=== PATIENT | female | born 1980 | race Caucasian/White ===

== ENCOUNTER → 2017-04-25 | Outpatient (CLI) | payer BC ==
[2017-04-25 08:47] LABS: Basophils # (A) 0.1 k/uL (0-0.2); Basophils % (A) 1 %; CH 31.1; CHCM 34.1; Eosinophils # (A) 0.3 k/uL (0-0.7); Eosinophils % (A) 3 %; HDW 2.54; HGB 14.8 gm/dL (11.4-16.0); Luc # (Auto) 0.13; Luc % (Auto) 2; Lymphocytes # (A) 3.1 k/uL (1.0-4.8); Lymphocytes % (A) 39 %; MCH 29.6 pg (25.0-35.0); MCHC 32.3 g/dL (31.0-37.0); MCV 91.7 fL (80.0-100.0); Mean Platelet Volume 8.2; Monocytes # (A) 0.4 k/uL (0-1.0); Monocytes % (A) 6 %; Neutrophils # (A) 3.9 k/uL (1.3-7.7); Neutrophils % (A) 50 %; RBC 5.02 m/uL (3.80-5.40); RDW 13.3 % (11.5-15.5); WBC 7.9 k/uL (3.8-10.6); WBC (Perox) 7.64
== END | disposition home or self-care (01) ==
LOC: LABPAT 08:06
PROVIDERS: ATTEND Obstetrics & Gynecology
DX: Z01.812 Encounter for preprocedural laboratory examination (principal); N85.01 Benign endometrial hyperplasia
CPT/HCPCS: 85025

== ENCOUNTER 2017-05-01 08:29 | Day surgery (SDC) | payer BC ==
[2017-04-24 14:12] VITALS: BMI 53.8
[~2017-05-01 08:29] MED LIST: DEXAMETHASONE SOD PHOSPHATE 10 MG/ML 1 ML VIAL IV ONE; HYDROmorphone 1 MG/ML 1 ML SYRINGE IVP PRN; LACTATED RINGERS 1,000 ML IV SCH; LIDOCAINE 1% 20 ML VIAL (10MG/ML) FOR IV START INTRADERMA PRN; ONDANSETRON 4 MG/2 ML VIAL IVP ONE; Pre Op ABX Message 1 EACH MISC MISCELLANE ONE; SCOPOLAMINE 1.5MG/72HR PATCH TRANSDERM ONE
[2017-05-01 08:54] LABS: Glucose,Whole Blood 217 mg/dL (75-99)
[2017-05-01] MEDS ORDERED: KETOROLAC 30 MG/ML 1 ML VIAL ONE (11:25)
[2017-05-01] MEDS ORDERED: SUCCINYLCHOLINE CHLORIDE VIAL 200 MG/10 ML VIAL IV ONE (11:25)
[2017-05-01] MEDS ORDERED: GLYCOPYRROLATE 0.2 MG/ML 2 ML VIAL ONE (11:25)
[2017-05-01] MEDS ORDERED: PROPOFOL 10 MG/ML 20 ML VIAL IV ONE (11:25)
[2017-05-01] MEDS ORDERED: MIDAZOLAM 2 MG/2 ML VIAL ONE (11:25)
[2017-05-01] MEDS ORDERED: fentaNYL (PF) 50 MCG/ML 2 ML AMP ONE (11:25)
[2017-05-01] MEDS ORDERED: LIDOCAINE 1% INJ 10MG/ML (20 ML MDV) ONE (11:25)
[2017-05-01] MEDS ORDERED: LIDOCAINE 2%-EPI 1:100,000 20 ML VIAL SQ ONE ×2 (11:52)
--- NOTE | 2017-05-01 12:02 | P.OP ---
Date of Procedure: 05/01/17 Preoperative Diagnosis: Endometrial hyperplasia Dysfunctional uterine bleeding BMI of 53.9 Postoperative Diagnosis: Same plus endometrial polyp Procedure(s) Performed: Diagnostic hysteroscopy and dilation and curettage Implants: Anesthesia: KYREEA Surgeon: Kely Jovel Estimated Blood Loss (ml): 5 IV fluids (ml): 900 Urine output (ml): 350 Pathology: other (Endometrial curettings) Disposition: PACU Indications for Procedure: Operative Findings: Enlarged uterus sounding 11 cm with fluffy endometrium and intracavitary lesion consistent with a posterior fundal polyp. Description of Procedure: After the patient was met in the preoperative holding area and all questions were answered, she was taken to the operating room where anesthetic was administered without incident. She was in positioned, prepped and draped in the dorsal lithotomy position. Bladder was drained for approximately 350 mL of clear urine. Weighted speculum was placed in the vagina and the cervix was grasped anteriorly with a single-tooth tenaculum. Paracervical block with lidocaine plus epinephrine was placed. Uterus was sounded to 11.5 cm. The cervix was then sequentially dilated to allow for passage of the diagnostic hysteroscope. Hysteroscope was introduced and there was some clot and debris and the uterus. Once this cleared the endometrium appeared fluffy and there was a polypoid appearing mass emanating from the posterior wall of the fundus. The hysteroscope was removed and the cervix was further dilated to allow for passage of the sharp banjo curet. The uterine cavity was circumferentially curettaged with a large amount of tissue obtained including tissue consistent with the appearance of the polyp. Once no further tissue was obtained the procedure was halted. The cervix was observed and no active bleeding was noted. Instruments removed from the vagina. The patient was awoken from anesthetic without incident and transported recovery area in good condition. All counts reported to me as correct by the operating room staff.
[2017-05-01 12:17] VITALS: TEMP 97.2
[2017-05-01 12:59] VITALS: RESP 18
[2017-05-01 13:34] VITALS: BP 137/80; PULSE 78
== END 2017-05-01 13:53 | disposition home or self-care (01) ==
LOC: OR 08:29
PROVIDERS: ATTEND Obstetrics & Gynecology
DX: N85.02 Endometrial intraepithelial neoplasia [EIN] (principal); N93.8 Other specified abnormal uterine and vaginal bleeding; N84.0 Polyp of corpus uteri; E11.9 Type 2 diabetes mellitus without complications; Z79.84 Long term (current) use of oral hypoglycemic drugs; E66.01 Morbid (severe) obesity due to excess calories; Z68.43 Body mass index [BMI] 50.0-59.9, adult
CPT/HCPCS: 81025; 88305; 58558; J2250; J0330; J1100; J2405; J2001; J3010; J1885; J2704

== ENCOUNTER → 2020-04-24 | Day surgery (SDC) | payer BC ==
[2020-04-24 07:20] VITALS: RESP 16; TEMP 98.3
[2020-04-24 09:42] VITALS: BP 138/88; PULSE 60
--- NOTE | 2020-04-24 16:42 | MM ---
EXAMINATION TYPE: MG stereo VAD BX LT DATE OF EXAM: 04/24/2020 COMPARISON: 04/07/2020 CLINICAL HISTORY: 40-year-old female referred for stereotactic core needle biopsy of left breast microcalcifications. TECHNIQUE: Stereotactic guided core biopsy of the left breast. FINDINGS: The procedure of stereotactic guided core biopsy was explained to the patient. Benefits, alternatives, and risks were discussed. An informed consent was then obtained. The shortness pathway for biopsy was chosen. Shortness pathway was a lateral approach given the location of the microcalcifications at the 9:00 position. I performed the localization localization followed by the remainder of the procedure. A vacuum assisted biopsy gun was used to obtain 4 core samples. The patient tolerated the procedure well without any immediate complication. The patient was kept in the radiology department for short stay after the procedure and then discharged home in stable condition. Targeted calcifications are identified in specimen mammogram. Post biopsy mammogram shows the clip to appear in satisfactory position relative to the targeted area of concern on the preprocedure images. Most of the calcifications were removed. One or 2 small calcifications remain. IMPRESSION: SUCCESSFUL, UNCOMPLICATED STEREOTACTIC GUIDED CORE BIOPSY OF INDETERMINATE 9:00 GROUPED LEFT BREAST CALCIFICATIONS FOUND ON BASELINE SCREENING. FULL PATHOLOGY RESULTS TO FOLLOW. Pathology Results: Benign LEFT BREAST, STEREOTACTIC CORE BIOPSY: Benign fibroadipose tissue with fibrosis and calcifications. See note. Recommendation Follow up mammogram of the left breast in 6 months. LAY
== END ==
LOC: RADMAMWWP 06:58
PROVIDERS: ATTEND Surgery
DX: N60.32 Fibrosclerosis of left breast (principal); R92.1 Mammographic calcification found on diagnostic imaging of breast; R92.8 Other abnormal and inconclusive findings on diagnostic imaging of breast
CPT/HCPCS: 88305; 19081; A4648; J2001

== ENCOUNTER → 2020-11-11 | Outpatient (CLI) | payer BC ==
--- NOTE | 2020-11-11 09:04 | MM ---
Reason for exam: follow-up at short interval from prior study. Last mammogram was performed 7 months ago. History: Benign MG stereo VAD BX LT of the left breast, April 24, 2020. Took hormonal contraceptives for 14 years beginning at age 16. Physical Findings: Nurse did not find any significant physical abnormalities on exam. MG 3D Diag Mammo W/Cad LT CC, MLO, and XCCL view(s) were taken of the left breast. Prior study comparison: April 07, 2020, bilateral MG 3d screening mammo w/cad. There are scattered fibroglandular densities. Previous mammotome biopsy in the left breast. No significant new findings when compared with previous films. These results were verbally communicated with the patient and result sheet given to the patient on 11/11/20. ASSESSMENT: Negative, BI-RAD 1 RECOMMENDATION: Return to routine screening mammogram schedule for both breasts.
== END ==
LOC: RADMAMWWP 07:50
PROVIDERS: ATTEND Surgery
DX: R92.8 Other abnormal and inconclusive findings on diagnostic imaging of breast (principal)
CPT/HCPCS: 77061; 77065

== ENCOUNTER → 2022-02-17 | Outpatient (CLI) | payer BC ==
--- NOTE | 2022-02-19 14:24 | MM ---
Reason for Exam: Screening (asymptomatic). Last mammogram was performed 1 year(s) and 11 month(s) ago. Patient History: Menarche at age 11. First Full-Term at age 17. Hysterectomy at age 37. Hormonal Contraceptives for 14 years from age 16 until age 31. 04/24/2020, Benign Core Biopsy on the left side. Last menstrual period: 09/11/2016 Risk Values: Viviana 5 year model risk: 0.8%. NCI Lifetime model risk: 9.6%. Prior Study Comparison: 04/07/2020 Bilateral Screening Mammogram, [facility]. 11/11/2020 Left Diagnostic Mammogram, [facility]. Tissue Density: There are scattered fibroglandular densities. Findings: Analyzed By CAD. Microclip lateral left breast prior biopsy. Central asymmetric density left cc view unchanged. Globally asymmetry posterior lateral right breast is unchanged. No significant change from prior exams. Overall Assessment: Benign, BI-RAD 2 Management: Screening Mammogram of both breasts in 1 year. A clinical breast exam by your physician is recommended on an annual basis and results should be correlated with mammographic findings. Also, the patient should continue monthly self breast exams. Electronically signed and approved by: Jazzmine Machado M.D. Radiologist
== END | disposition home or self-care (01) ==
LOC: RADMAMWWP 07:03
PROVIDERS: ATTEND Family Medicine
DX: Z12.31 Encounter for screening mammogram for malignant neoplasm of breast (principal)
CPT/HCPCS: 77063; 77067

== ENCOUNTER 2023-01-29 12:54 | Emergency (ER) | payer BC ==
[2023-01-29 13:11] VITALS: BP 153/77; PULSE 99; RESP 20; TEMP 98.4
--- NOTE | 2023-01-29 13:54 | XR ---
EXAMINATION TYPE: XR foot complete LT, XR ankle complete LT DATE OF EXAM: 01/29/2023 1:25 PM INDICATION: Patient age:Female; 43 years old; Reason for study: pain; COMPARISON: Aseptically image of these none TECHNIQUE: The left foot and ankle was examined in the AP, oblique, and lateral projections. FINDINGS: No evidence of any acute osseous pathology. No evidence of soft tissue swelling. Joints are preserve d. Soft tissue swelling around the foot. IMPRESSION: 1. No evidence of acute fracture. 2. Soft tissue swelling around the foot correlate soft tissue injury.
--- NOTE | 2023-01-29 14:02 | ED ---
Lower Extremity Injury HPI - General Chief Complaint: Extremity Injury, Lower Stated Complaint: L ankle injury Time Seen by Provider: 01/29/23 13:39 Source: patient, RN notes reviewed Mode of arrival: ambulatory Limitations: no limitations - History of Present Illness Initial Comments: 43-year-old female presents emergency Department with chief complaint of left foot and ankle injury. Patient states she was at a concert at [employer] last night states that some of slid down and she rolled her ankle. Patient states that she felt a pop and did not have any discomfort states that she woke up this swelling and pain. Patient states is worse with certain movements and ambulation. - Related Data Home Medications Medication Instructions Recorded Confirmed sitaGLIPtin PHOSPHATE [Januvia] 50 mg PO DAILY 04/10/20 04/24/20 Allergies Allergy/AdvReac Type Severity Reaction Status Date / Time morphine Allergy Anaphylaxis Verified 01/29/23 13:11 Review of Systems ROS Statement: Those systems with pertinent positive or pertinent negative responses have been documented in the HPI. ROS Other: All systems not noted in ROS Statement are negative. Past Medical History Past Medical History: Diabetes Mellitus Additional Past Medical History / Comment(s): PCOS History of Any Multi-Drug Resistant Organisms: None Reported Past Surgical History: Hysterectomy Additional Past Surgical History / Comment(s): Pt. states she coded after her hysterectomy after being given morphine. Past Anesthesia/Blood Transfusion Reactions: No Reported Reaction Past Psychological History: No Psychological Hx Reported Smoking Status: Never smoker Past Alcohol Use History: None Reported Past Drug Use History: None Reported - Past Family History Father Family Medical History: Cancer General Exam Limitations: no limitations General appearance: alert, in no apparent distress Head exam: Present: atraumatic, normocephalic, normal inspection Respiratory exam: Present: normal lung sounds bilaterally. Absent: respiratory distress, wheezes, rales, rhonchi, stridor Cardiovascular Exam: Present: regular rate, normal rhythm, normal heart sounds. Absent: systolic murmur, diastolic murmur, rubs, gallop, clicks Extremities exam: Present: other (Tenderness to lateral ankle left, lateral foot neurovascular intact mild swelling no ecchymosis no proximal tib-fib tenderness) Course Vital Signs 01/29/23 13:07 Temperature 98.4 F Pulse Rate 99 Respiratory 20 Rate Blood Pressure 153/77 O2 Sat by Pulse 96 Oximetry Medical Decision Making - Medical Decision Making Was pt. sent in by a medical professional or institution (JESS Garcia, SALES NEGOTIATOR, urgent care, hospital, or senior care...) When possible be specific @ -No Did you speak to anyone other than the patient for history (EMS, parent, family, police, friend...)? What history was obtained from this source @ -No Did you review nursing and triage notes (agree or disagree)? Why? @ -I reviewed and agree with nursing and triage notes Were old charts reviewed (outside hosp., previous admission, EMS record, old EKG, old radiological studies, urgent care reports/EKG's, senior care records)? Report findings @ -No old charts were reviewed Differential Diagnosis (chest pain, altered mental status, abdominal pain women, abdominal pain men, vaginal bleeding, weakness, fever, dyspnea, syncope, headache, dizziness, GI bleed, back pain, seizure, CVA, palpatations, mental health, musculoskeletal)? @ -[Ankle fracture, foot fracture, ankle sprain, foot sprain EKG interpreted by me (3pts min.). @ -As above X-rays interpreted by me (1pt min.). @ -X-ray left ankle 3 view no acute fracture dislocation noted, x-ray left foot 3 view no acute fracture dislocation CT interpreted by me (1pt min.). @ -None done U/S interpreted by me (1pt. min.). @ -None done What testing was considered but not performed or refused? (CT, X-rays, U/S, labs)? Why? @ -None What meds were considered but not given or refused? Why? @ -None Did you discuss the management of the patient with other professionals (professionals i.e. JESS Garcia, SALES NEGOTIATOR, lab, RT, psych nurse, social group worker, job developer, teacher, chairman & chief executive officer, pillowcase sewer)? Give summary @ -No Was smoking cessation discussed for >3mins.? @ -No Was critical care preformed (if so, how long)? @ -No Were there social determinants of health that impacted care today? How? (Homelessness, low income, unemployed, alcoholism, drug addiction, transportation, low edu. Level, literacy, decrease access to med. care, [place] [facility], rehab)? @ -No Was there de-escalation of care discussed even if they declined (Discuss DNR or withdrawal of care, Hospice)? DNR status @ -No What co-morbidities impacted this encounter? (DM, HTN, Smoking, COPD, CAD, Cancer, CVA, ARF, Chemo, Hep., AIDS, mental health diagnosis, sleep apnea, morbid obesity)? @ -None Was patient admitted / discharged? Hospital course, mention meds given and route, prescriptions, significant lab abnormalities, going to OR and other pertinent info. @ -Discharge patient has a left foot, ankle sprain. Patient discharged in stable condition return parameters were discussed. Undiagnosed new problem with uncertain prognosis? @ -No Drug Therapy requiring intensive monitoring for toxicity (Heparin, Nitro, Insulin, Cardizem)? @ -No Were any procedures done? @ -No Diagnosis/symptom? @ -Left foot ankle, foot sprain Acute, or Chronic, or Acute on Chronic? @ -Acute Uncomplicated (without systemic symptoms) or Complicated (systemic symptoms)? @ -Uncomplicated Side effects of treatment? @ -No Exacerbation, Progression, or Severe Exacerbation? @ -No Poses a threat to life or bodily function? How? (Chest pain, [place], [place], pneumonia, PE, COPD, DKA, ARF, appy, cholecystitis, CVA, Diverticulitis, Homicidal, Suicidal, threat to staff... and all critical care pts) @ -No Disposition Clinical Impression: Sprain of left foot, Left ankle sprain Disposition: HOME SELF-CARE Condition: Stable Instructions (If sedation given, give patient instructions): Ankle Sprain (ED), Foot Sprain (ED) Additional Instructions: Please return to the Emergency Department if symptoms worsen or any other concerns. Is patient prescribed a controlled substance at d/c from ED?: No Referrals: Betzaida Mendieta MD [Primary Care Provider] - 1-2 days Melissa Stevens DO [Doctor of Osteopathic Medicine] - 1-2 days Time of Disposition: 14:02
== END 2023-01-29 14:42 | disposition home or self-care (01) ==
LOC: EC 12:54
DX: S93.402A Sprain of unspecified ligament of left ankle, initial encounter (principal); S93.602A Unspecified sprain of left foot, initial encounter; E11.9 Type 2 diabetes mellitus without complications; Z79.84 Long term (current) use of oral hypoglycemic drugs; Z88.6 Allergy status to analgesic agent; X50.1XXA Overexertion from prolonged static or awkward postures, initial encounter
CPT/HCPCS: 99283

== ENCOUNTER → 2023-02-20 | Outpatient (CLI) | payer BC ==
--- NOTE | 2023-02-20 19:25 | MM ---
Reason for Exam: Screening (asymptomatic). Last screening mammogram was performed 12 month(s) ago. Patient History: Menarche at age 11. First Full-Term at age 17. Hysterectomy at age 37. Perimenopausal. Hormonal Contraceptives for 14 years from age 16 until age 31. 04/24/2020, Benign Core Biopsy on the left side. Risk Values: Viviana 5 year model risk: 0.9%. NCI Lifetime model risk: 9.5%. Prior Study Comparison: 04/07/2020 Bilateral Screening Mammogram, [facility]. 11/11/2020 Left Diagnostic Mammogram, [facility]. 02/17/2022 Bilateral MG 3D screening mammo w/cad, [facility]. Tissue Density: There are scattered fibroglandular densities. Findings: Analyzed By CAD. There appears symmetrical. There is a distortion in the mid 12:00 left breast which may be changed from comparison. Additional evaluation with compression cranial caudal view is recommended with standard left mediolateral view is recommended. Overall Assessment: Incomplete: need additional imaging evaluation, BI-RAD 0 Management: Diagnostic Mammogram of the left breast. A negative mammogram report should not preclude additional follow up of suspicious palpable abnormalities. Patient should continue monthly self breast exam. A clinical breast exam by your physician is recommended on an annual basis and results should be correlated with mammographic findings. Electronically signed and approved by: Omega Weinberg D.O. Radiologis
== END | disposition home or self-care (01) ==
LOC: RADMAMWWP 07:15
PROVIDERS: ATTEND Obstetrics & Gynecology
DX: Z12.31 Encounter for screening mammogram for malignant neoplasm of breast (principal)
CPT/HCPCS: 77063; 77067

== ENCOUNTER → 2023-03-13 | Outpatient (CLI) | payer BC ==
--- NOTE | 2023-03-13 09:19 | MM ---
Reason for Exam: Additional evaluation requested from abnormal screening. Last screening mammogram was performed less than 1 month ago. Patient History: Menarche at age 11. First Full-Term at age 17. Hysterectomy at age 37. Perimenopausal. Hormonal Contraceptives for 14 years from age 16 until age 31. 04/24/2020, Benign Core Biopsy on the left side. Risk Values: Viviana 5 year model risk: 0.9%. NCI Lifetime model risk: 9.5%. Prior Study Comparison: 04/07/2020 Bilateral Screening Mammogram, [facility]. 11/11/2020 Left Diagnostic Mammogram, [facility]. 02/17/2022 Bilateral MG 3D screening mammo w/cad, [facility]. 02/20/2023 Bilateral MG 3D screening mammo w/cad, [facility]. Tissue Density: Left: There are scattered fibroglandular densities. Findings: Analyzed By CAD. Impression there is a persistent area of increased density centimeters from the nipple up are left breast. Ultrasound is recommended for additional workup. No suspicious corresponding abnormality on the medial lateral view clearly evident. Overall Assessment: Incomplete: need additional imaging evaluation, BI-RAD 0 Management: Diagnostic Breast Ultrasound of the left breast. A negative mammogram report should not preclude additional follow up of suspicious palpable abnormalities. Patient should continue monthly self breast exam. A clinical breast exam by your physician is recommended on an annual basis and results should be correlated with mammographic findings. Electronically signed and approved by: Omega Weinberg D.O. Radiologis
--- NOTE | 2023-03-13 10:18 | USB ---
Reason for Exam: Additional evaluation requested from abnormal screening. Patient History: Menarche at age 11. First Full-Term at age 17. Hysterectomy at age 37. Perimenopausal. Hormonal Contraceptives for 14 years from age 16 until age 31. 04/24/2020, Benign Core Biopsy on the left side. Risk Values: Viviana 5 year model risk: 0.9%. NCI Lifetime model risk: 9.5%. Technique: Method: Targeted. Prior Study Comparison: 11/11/2020 Left Diagnostic Mammogram, [facility]. 02/17/2022 Bilateral MG 3D screening mammo w/cad, [facility]. 02/20/2023 Bilateral MG 3D screening mammo w/cad, [facility]. Findings: The upper outer quadrant of the left breast, the axilla of the left breast and the retroareolar of the left breast were scanned. No solid or cystic masses are identified. No persistent abnormality to correlate with mammographic findings. Overall Assessment: Benign, BI-RAD 2 Management: Diagnostic Mammogram of the left breast in 6 months. Diagnostic Breast Ultrasound of the left breast in 6 months. A clinical breast exam by your physician is recommended on an annual basis and results should be correlated with mammographic findings. This exam should not preclude additional follow-up of suspicious palpable abnormalities. Results were given to the patient verbally at the time of exam. Electronically signed and approved by: Omega Weinberg D.O. Radiologis
== END | disposition home or self-care (01) ==
LOC: RADMAMWWP 08:42
PROVIDERS: ATTEND Obstetrics & Gynecology
DX: R92.8 Other abnormal and inconclusive findings on diagnostic imaging of breast (principal)
CPT/HCPCS: 77061; 77065